=== PATIENT | male | born 1985 ===

== ENCOUNTER 2020-06-03 09:35 | Emergency (ER) | payer SELFPAY ==
--- NOTE | 2020-06-03 10:08 | NUR ---
No answer when called from lobby for triage.
--- NOTE | 2020-06-03 10:20 | NUR ---
PT [id number]
--- NOTE | 2020-06-03 10:20 | NUR ---
PT NIL X2
--- NOTE | 2020-06-03 10:27 | NUR ---
PT [id number]
== END 2020-06-03 11:19 | disposition left against medical advice (07) ==
LOC: ED 11:11
DX: M79.641 Pain in right hand (principal); Z53.21 Procedure and treatment not carried out due to patient leaving prior to being seen by health care provider